=== PATIENT | male | born 1985 | race Caucasian/White ===

== ENCOUNTER 2023-03-24 18:35 | Emergency (ER) | payer MEDICAID ==
[~2023-03-24] VITALS: Ht 157.5 cm; Wt 60.8 kg
[2023-03-24 19:18] VITALS: BP_SYST 135
--- NOTE | 2023-03-24 19:18 | NUR ---
Patient triaged and placed in waiting room. VSS and patient appears in no acute distress at this time. Accompanied by SELF, awaiting available bed, and MD notified of need for MSE.
--- NOTE | 2023-03-24 21:15 | NUR ---
ER at bedside examining patient.
[2023-03-24] MEDS ORDERED: ACYC400T19 PO (21:17)
--- NOTE | 2023-03-24 21:31 | NUR ---
Patient given written and verbal discharge instructions and verbalizes understanding. ER MD discussed with patient the results and treatment provided. Patient in stable condition. ID arm band removed. Rx of ACYCLOVIR given. Patient educated on STOMATITIS and to follow up with PMD. Pain Scale . Opportunity for questions provided and answered. Medication side effect fact sheet provided.
[2023-03-24 21:32] VITALS: BP_SYST 135
== END 2023-03-24 21:32 | disposition home or self-care (01) ==
LOC: SED 18:35
DX: K05.10 Chronic gingivitis, plaque induced (principal); K13.79 Other lesions of oral mucosa; Z79.899 Other long term (current) drug therapy
CPT/HCPCS: 99283

== ENCOUNTER 2023-04-02 17:51 | Emergency (ER) | payer MEDICAID ==
[~2023-04-02] VITALS: Ht 160 cm; Wt 74.8 kg
[~2023-04-02 17:51] MED LIST: ACYC400T19 PO
--- NOTE | 2023-04-02 18:30 | NUR ---
Patient triaged and placed in waiting room. VSS and patient appears in no acute distress at this time. Accompanied by self, awaiting available bed, and MD notified of need for MSE.
[2023-04-02 18:52] VITALS: BP_SYST 129
--- NOTE | 2023-04-02 18:57 | NUR ---
Patient given written and verbal discharge instructions and verbalizes understanding. ER MD discussed with patient the results and treatment provided. Patient in stable condition. ID arm band removed. Patient educated on pain management and to follow up with PMD. Pain Scale . Opportunity for questions provided and answered. Medication side effect fact sheet provided.
== END 2023-04-02 18:56 | disposition home or self-care (01) ==
LOC: SED 17:51
DX: K12.1 Other forms of stomatitis (principal); Z79.899 Other long term (current) drug therapy
CPT/HCPCS: 99281